=== PATIENT | female | born 1990 | race Caucasian/White ===

== ENCOUNTER 2017-12-11 14:33 | Observation (INO) | payer MEDICAID ==
[~2017-12-11] VITALS: Ht 149.9 cm; Wt 71.2 kg
[2017-12-11] MEDS ORDERED: LACTATED RINGERS 1,000 ML IV SCH (15:31)
[2017-12-11] MEDS ORDERED: TERBUTALINE SULFATE 1MG/ML VIAL SUBCUT NR (15:45)
[2017-12-11 16:03] LABS: BASOPHILS % 0.8 % (0.0-2.0); EOSINOPHILS % 1.5 % (0.0-5.0); HEMATOCRIT. 36.7 % (36.0-48.0); HEMOGLOBIN. 12.6 g/dL (12.0-16.0); LYMPHOCYTES % 14.3 % (20.0-50.0); MEAN CORPUSCULAR HEMOGLOBIN 29.9 pg (28.0-32.0); MEAN CORPUSCULAR VOLUME 86.8 fL (81.0-99.0); MEAN PLATELET VOLUME 8.6 fl (7.4-10.4); MONOCYTES % 6.3 % (2.0-8.0); NEUTROPHILS % 77.1 % (40.0-76.0); PLATELET 277 x1000/uL (130-400); RED BLOOD CELL COUNT 4.23 mill/uL (4.2-5.4); RED CELL DISTRIBUTION WIDTH 13.9 % (11.6-14.6)
[2017-12-11 16:03] LABS: CLARITY URINE CLEAR (CLEAR); COLOR URINE YELLOW (YELLOW); KETONES URINE NEGATIVE (NEGATIVE); LEUKOCYTE ESTERASE URINE NEGATIVE (NEGATIVE); NITRITE URINE NEGATIVE (NEGATIVE); OCCULT BLOOD URINE 1+ (NEGATIVE); PH URINE 6.5 (4.5-8.0); PROTEIN URINE 2+ (NEGATIVE); SPECIFIC GRAVITY URINE 1.015 (1.005-1.030); UROBILINOGEN URINE 0.2 E.U./dL (0.2-1.0)
[2017-12-11] MEDS ORDERED: BETAMETHASONE ACET/BETAMET 30 MG/5 ML VIAL IM NR (18:56)
[2017-12-11] MEDS ORDERED: CEFAZOLIN 2,000 MG in DEXT 5% WATER 100 ML IV NR (19:00)
[2017-12-11] MEDS ORDERED: PREN1TAB78 MT (21:13)
== END 2017-12-11 21:55 | disposition home or self-care (01) ==
LOC: L&D 14:33
PROVIDERS: ADMIT Obstetrics & Gynecology; ATTEND Obstetrics & Gynecology
DX: O26.852 Spotting complicating pregnancy, second trimester (principal); O26.892 Other specified pregnancy related conditions, second trimester; R10.30 Lower abdominal pain, unspecified; Z3A.27 27 weeks gestation of pregnancy
CPT/HCPCS: 36415; 76805; 76818; 81003; 85025; 96361; 96365; 96372; 99281; G0378; J0690; J0702; J3105; J7120; 96360; J7060

== ENCOUNTER 2017-12-12 19:16 | Observation (INO) | payer MEDICAID ==
[~2017-12-12] VITALS: Ht 149.9 cm; Wt 71.2 kg
[~2017-12-12 19:16] MED LIST: PREN1TAB78 MT
[2017-12-12] MEDS ORDERED: BETAMETHASONE ACET/BETAMET 30 MG/5 ML VIAL IM NR (20:00)
== END 2017-12-12 20:15 | disposition home or self-care (01) ==
LOC: L&D 19:16
PROVIDERS: ADMIT Obstetrics & Gynecology; ATTEND Obstetrics & Gynecology
DX: O62.9 Abnormality of forces of labor, unspecified (principal); Z3A.27 27 weeks gestation of pregnancy
CPT/HCPCS: 96372; G0378

== ENCOUNTER 2018-01-29 21:34 | Observation (INO) | payer MEDICAID ==
[~2018-01-29] VITALS: Ht 149.9 cm; Wt 72.6 kg
[2018-01-29 22:28] LABS: CLARITY URINE CLEAR (CLEAR); COLOR URINE YELLOW (YELLOW); KETONES URINE NEGATIVE (NEGATIVE); LEUKOCYTE ESTERASE URINE NEGATIVE (NEGATIVE); NITRITE URINE NEGATIVE (NEGATIVE); OCCULT BLOOD URINE 2+ (NEGATIVE); PH URINE 7.5 (4.5-8.0); PROTEIN URINE NEGATIVE (NEGATIVE); SPECIFIC GRAVITY URINE 1.004 (1.005-1.030); UROBILINOGEN URINE 0.2 E.U./dL (0.2-1.0)
[2018-01-29 22:38] LABS: *AMPHETAMINES SCREEN URINE NEGATIVE (NEGATIVE); *BARBITURATES SCREEN URINE NEGATIVE (NEGATIVE); *BENZODIAZEPINES SCREEN URINE NEGATIVE (NEGATIVE); *COCAINE SCREEN URINE NEGATIVE (NEGATIVE); METHADONE URINE SCREEN NEGATIVE (NEGATIVE); OPIATES URINE SCREEN NEGATIVE (NEGATIVE)
[2018-01-29 22:39] LABS: CANNABINOID URINE SCREEN NEGATIVE (NEGATIVE); PHENCYCLIDINE URINE SCREEN NEGATIVE (NEGATIVE)
[2018-01-29] MEDS: LACTATED RINGERS 1,000 ML IV SCH (23:20)
[2018-01-30] MEDS ORDERED: CEFAZOLIN 2,000 MG in DEXT 5% WATER 100 ML IV SCH (00:15)
[2018-01-30] MEDS: TERBUTALINE SULFATE 1MG/ML VIAL SUBCUT PRN ×2 (00:17→01:09)
[2018-01-30] MEDS: LACTATED RINGERS 1,000 ML IV SCH (00:40)
== END 2018-01-30 02:15 | disposition home or self-care (01) ==
LOC: L&D 21:34
PROVIDERS: ADMIT Obstetrics & Gynecology; ATTEND Obstetrics & Gynecology
DX: O26.853 Spotting complicating pregnancy, third trimester (principal); O62.9 Abnormality of forces of labor, unspecified; Z3A.35 35 weeks gestation of pregnancy
CPT/HCPCS: 80305; 81003; 96365; 96372; 99281; G0378; J0690; J3105; J7120; 96360; 96361; J7060

== ENCOUNTER 2018-02-02 00:24 | Observation (INO) | payer MEDICAID ==
[~2018-02-02] VITALS: Ht 124.5 cm; Wt 72.6 kg
[2018-02-02] MEDS ORDERED: LACTATED RINGERS 1,000 ML IV SCH ×2 (00:58→01:15)
[2018-02-02] MEDS ORDERED: TERBUTALINE SULFATE 1MG/ML VIAL SUBCUT PRN (01:00)
== END 2018-02-02 02:50 | disposition home or self-care (01) ==
LOC: L&D 00:24
PROVIDERS: ADMIT Obstetrics & Gynecology; ATTEND Obstetrics & Gynecology
DX: O46.93 Antepartum hemorrhage, unspecified, third trimester (principal); Z3A.34 34 weeks gestation of pregnancy
CPT/HCPCS: 96372; 99281; G0378; J3105; J7120; 96360

== ENCOUNTER 2018-07-31 16:31 | Inpatient (IN) | payer MEDICAID ==
[~2018-07-31] VITALS: Ht 152.4 cm; Wt 68.0 kg
[2018-07-31 17:06] LABS: CLARITY URINE CLEAR (CLEAR); COLOR URINE RED (YELLOW); KETONES URINE TRACE (NEGATIVE); LEUKOCYTE ESTERASE URINE NEGATIVE (NEGATIVE); NITRITE URINE NEGATIVE (NEGATIVE); OCCULT BLOOD URINE 3+ (NEGATIVE); PROTEIN URINE 2+ (NEGATIVE); SPECIFIC GRAVITY URINE 1.011 (1.005-1.030); UROBILINOGEN URINE 0.2 E.U./dL (0.2-1.0)
[2018-07-31] MEDS ORDERED: SODIUM CHLORIDE 0.9% 1,000 ML IV ONE (23:06)
[2018-07-31 23:49] LABS: BASOPHILS % 0.6 % (0.0-2.0); EOSINOPHILS % 1.6 % (0.0-5.0); HEMATOCRIT. 41.5 % (36.0-48.0); HEMOGLOBIN. 13.8 g/dL (12.0-16.0); LYMPHOCYTES % 22.3 % (20.0-50.0); MEAN CORPUSCULAR HEMOGLOBIN 29.4 pg (28.0-32.0); MEAN CORPUSCULAR VOLUME 88.1 fL (81.0-99.0); MEAN PLATELET VOLUME 8.5 fl (7.4-10.4); MONOCYTES % 6.2 % (2.0-8.0); NEUTROPHILS % 69.3 % (40.0-76.0); PLATELET 289 x1000/uL (130-400); RED BLOOD CELL COUNT 4.71 mill/uL (4.2-5.4); RED CELL DISTRIBUTION WIDTH 13.8 % (11.6-14.6)
[2018-07-31 23:56] LABS: CHLORIDE 102 mEq/L (98-107)
[2018-08-01 00:21] LABS: B-HCG QUANTITATIVE 1453 mIU/mL (<3)
[2018-08-01 10:53] VITALS: BP 120/68
[2018-08-01] MEDS ORDERED: DOXY150T MT (11:18)
[2018-08-01] MEDS ORDERED: [UNRECOGNIZED DRUG - REMARK] (11:18)
[2018-08-01] MEDS ORDERED: ORLI60CA2 MT (11:18)
[2018-08-01 12:00] VITALS: BP 119/61
[2018-08-01] MEDS ORDERED: IBUPROFEN 400MG TABLET PO PRN (16:30)
[2018-08-01] MEDS ORDERED: ONDANSETRON HCL 4MG/2ML INJ IV PRN (16:30)
[2018-08-01] MEDS ORDERED: IBUPROFEN 800MG TABLET PO PRN (16:30)
[2018-08-01] MEDS: LACTATED RINGERS 1,000 ML IV SCH (16:37)
[2018-08-01] MEDS ORDERED: SIMETHICONE 80MG TABLET CHEW PO PRN (18:15)
[2018-08-02] MEDS: LACTATED RINGERS 1,000 ML IV SCH ×3 (00:33→15:46)
[2018-08-02 07:00] LABS: HEMATOCRIT 33.5 % (36.0-48.0); HEMOGLOBIN 11.2 g/dL (12.0-16.0); MEAN CORPUSCULAR HEMOGLOBIN 29.3 pg (28.0-32.0); MEAN CORPUSCULAR VOLUME 87.6 fL (81.0-99.0); PLATELET 206 x1000/uL (130-400); RED BLOOD CELL COUNT 3.82 mill/uL (4.2-5.4); RED CELL DISTRIBUTION WIDTH 13.8 % (11.6-14.6)
[2018-08-02 08:00] VITALS: BP 95/38
[2018-08-02 12:00] VITALS: BP 106/45
[2018-08-02 16:00] VITALS: BP 105/45
[2018-08-02 18:17] VITALS: BP 125/81
== END 2018-08-02 18:38 | disposition home or self-care (01) | DRG 564 ==
LOC: ER 16:31 → 6EST 08-01 00:16 → ENRESERV 08-01 09:46
PROVIDERS: ADMIT Obstetrics & Gynecology; ATTEND Obstetrics & Gynecology
DX: O03.9 Complete or unspecified spontaneous abortion without complication (principal); D62 Acute posthemorrhagic anemia; E87.6 Hypokalemia; J45.909 Unspecified asthma, uncomplicated; M10.9 Gout, unspecified
CPT/HCPCS: 36415; 76801; 84702; 85027; 86850; 86900; 96360; 96361; 99291; J7030; J7120

== ENCOUNTER 2019-12-24 01:25 | Observation (INO) | payer MEDICAID ==
[~2019-12-24] VITALS: Ht 149.9 cm; Wt 68.9 kg
[~2019-12-24 01:25] MED LIST changes: +DOXY150T5 MT; +ORLI60CA2 MT; +[UNRECOGNIZED DRUG - REMARK]
[2019-12-24] MEDS ORDERED: TERBUTALINE SULFATE 1MG/ML VIAL SUBCUT ONE (03:15)
[2019-12-24 03:42] LABS: BASOPHILS % 0.4 % (0.0-2.0); EOSINOPHILS % 0.9 % (0.0-5.0); HEMATOCRIT. 38.3 % (36.0-48.0); HEMOGLOBIN. 13.1 g/dL (12.0-16.0); LYMPHOCYTES % 14.3 % (20.0-50.0); MEAN CORPUSCULAR HEMOGLOBIN 30.4 pg (28.0-32.0); MEAN CORPUSCULAR VOLUME 88.8 fL (81.0-99.0); MEAN PLATELET VOLUME 8.9 fl (7.4-10.4); MONOCYTES % 6.6 % (2.0-8.0); NEUTROPHILS % 77.8 % (40.0-76.0); PLATELET 269 x1000/uL (130-400); RED BLOOD CELL COUNT 4.31 mill/uL (4.2-5.4); RED CELL DISTRIBUTION WIDTH 13.9 % (11.6-14.6)
[2019-12-24] MEDS: DEXT 5%/LACTATED RINGERS 1,000 ML IV SCH ×2 (03:52→08:55)
[2019-12-24 04:27] LABS: CHLORIDE 105 mEq/L (98-107)
[2019-12-24 04:54] LABS: CLARITY URINE CLEAR (CLEAR); COLOR URINE YELLOW (YELLOW); KETONES URINE NEGATIVE (NEGATIVE); LEUKOCYTE ESTERASE URINE NEGATIVE (NEGATIVE); NITRITE URINE NEGATIVE (NEGATIVE); OCCULT BLOOD URINE 1+ (NEGATIVE); PH URINE 7.5 (4.5-8.0); PROTEIN URINE 2+ (NEGATIVE); SPECIFIC GRAVITY URINE 1.012 (1.005-1.030)
[2019-12-24] MEDS ORDERED: CEFAZOLIN 2,000 MG in DEXT 5% WATER 100 ML IV ONE (07:00)
[2019-12-24] MEDS: POTASSIUM CHLORIDE 20MEQ TABLET SR PO SCH ×2 (07:39→13:01)
[2019-12-24 14:19] LABS: BASOPHILS % 0.3 % (0.0-2.0); EOSINOPHILS % 0.7 % (0.0-5.0); HEMATOCRIT. 38.5 % (36.0-48.0); HEMOGLOBIN. 13.1 g/dL (12.0-16.0); LYMPHOCYTES % 15.5 % (20.0-50.0); MEAN CORPUSCULAR HEMOGLOBIN 30.2 pg (28.0-32.0); MEAN CORPUSCULAR VOLUME 88.8 fL (81.0-99.0); MEAN PLATELET VOLUME 8.7 fl (7.4-10.4); NEUTROPHILS % 78.5 % (40.0-76.0); PLATELET 264 x1000/uL (130-400); RED BLOOD CELL COUNT 4.33 mill/uL (4.2-5.4); RED CELL DISTRIBUTION WIDTH 14.3 % (11.6-14.6)
== END 2019-12-24 15:15 | disposition home or self-care (01) ==
LOC: 8 EST LDRP 01:25
PROVIDERS: ADMIT Obstetrics & Gynecology; ATTEND Obstetrics & Gynecology
DX: O99.352 Diseases of the nervous system complicating pregnancy, second trimester (principal); R42 Dizziness and giddiness; Z3A.22 22 weeks gestation of pregnancy
CPT/HCPCS: 36415; 59025; 76805; 80053; 81003; 82731; 84132; 85025; 96361; 96365; 96372; G0378; J0690; J3105; J7060; 59412; 96360; 99281; J7121

== ENCOUNTER 2020-02-19 16:48 | Observation (INO) | payer MEDICAID ==
[~2020-02-19] VITALS: Ht 152.4 cm; Wt 72.1 kg
[~2020-02-19 16:48] MED LIST changes: -DOXY150T5 MT; -ORLI60CA2 MT; -[UNRECOGNIZED DRUG - REMARK]
[2020-02-19 17:57] LABS: *AMPHETAMINES SCREEN URINE NEGATIVE (NEGATIVE); *BARBITURATES SCREEN URINE NEGATIVE (NEGATIVE)
[2020-02-19 17:58] LABS: *BENZODIAZEPINES SCREEN URINE NEGATIVE (NEGATIVE); *COCAINE SCREEN URINE NEGATIVE (NEGATIVE); CANNABINOID URINE SCREEN NEGATIVE (NEGATIVE); METHADONE URINE SCREEN NEGATIVE (NEGATIVE); OPIATES URINE SCREEN NEGATIVE (NEGATIVE); PHENCYCLIDINE URINE SCREEN NEGATIVE (NEGATIVE)
== END 2020-02-19 19:13 | disposition home or self-care (01) ==
LOC: 8 EST LDRP 16:48
PROVIDERS: ADMIT Obstetrics & Gynecology; ATTEND Obstetrics & Gynecology
DX: O36.8330 Maternal care for abnormalities of the fetal heart rate or rhythm, third trimester, not applicable or unspecified (principal); Z3A.33 33 weeks gestation of pregnancy; Z79.899 Other long term (current) drug therapy
CPT/HCPCS: 59025; 76815; 76818; 80305; G0378; 99281

== ENCOUNTER 2020-02-22 10:11 | Observation (INO) | payer MEDICAID ==
[~2020-02-22] VITALS: Ht 149.9 cm; Wt 72.1 kg
== END 2020-02-22 12:00 | disposition home or self-care (01) ==
LOC: 8 EST LDRP 10:11
PROVIDERS: ADMIT Obstetrics & Gynecology; ATTEND Obstetrics & Gynecology
DX: O36.8330 Maternal care for abnormalities of the fetal heart rate or rhythm, third trimester, not applicable or unspecified (principal); Z3A.33 33 weeks gestation of pregnancy
CPT/HCPCS: 59025; 76815; 76818; G0378

== ENCOUNTER 2020-03-26 11:44 | Observation (INO) | payer MEDICAID ==
[~2020-03-26] VITALS: Ht 149.9 cm; Wt 74.4 kg
[2020-03-26 13:17] LABS: CHLORIDE 105 mEq/L (98-107)
[2020-03-26 13:18] LABS: BASOPHILS % 0.7 % (0.0-2.0); EOSINOPHILS % 0.5 % (0.0-5.0); HEMATOCRIT. 41.4 % (36.0-48.0); HEMOGLOBIN. 13.9 g/dL (12.0-16.0); LYMPHOCYTES % 13.9 % (20.0-50.0); MEAN CORPUSCULAR VOLUME 86.7 fL (81.0-99.0); MEAN PLATELET VOLUME 10.4 fl (7.4-10.4); MONOCYTES % 4.4 % (2.0-8.0); NEUTROPHILS % 80.5 % (40.0-76.0); PLATELET 197 x1000/uL (130-400); RED BLOOD CELL COUNT 4.78 mill/uL (4.2-5.4); RED CELL DISTRIBUTION WIDTH 15.3 % (11.6-14.6)
[2020-03-26 13:24] LABS: D-DIMER 1.68 mg/L FEU (<0.50); INR 0.9; PARTIAL THROMBOPLASTIN TIME 27.1 sec (23.4-31.0); PROTHROMBIN TIME 9.6 sec (9.6-11.0)
[2020-03-26 13:25] LABS: CLARITY URINE CLEAR (CLEAR); COLOR URINE YELLOW (YELLOW); KETONES URINE NEGATIVE (NEGATIVE); LEUKOCYTE ESTERASE URINE NEGATIVE (NEGATIVE); NITRITE URINE NEGATIVE (NEGATIVE); OCCULT BLOOD URINE 1+ (NEGATIVE); PROTEIN URINE 2+ (NEGATIVE); SPECIFIC GRAVITY URINE 1.006 (1.005-1.030); UROBILINOGEN URINE 0.2 E.U./dL (0.2-1.0)
== END 2020-03-26 14:50 | disposition home or self-care (01) ==
LOC: 8 EST LDRP 11:44
PROVIDERS: ADMIT Obstetrics & Gynecology; ATTEND Obstetrics & Gynecology
DX: O13.3 Gestational [pregnancy-induced] hypertension without significant proteinuria, third trimester (principal); Z3A.38 38 weeks gestation of pregnancy
CPT/HCPCS: 36415; 59025; 80053; 81003; 84550; 85025; 85379; 85384; 85610; 85730; G0378; 99281

== ENCOUNTER → 2020-03-28 | Outpatient (CLI) | payer MEDICAID | END | disposition home or self-care (01) | LOC: LAB 12:59 | PROVIDERS: ATTEND Obstetrics & Gynecology | DX: Z20.828 Contact with and (suspected) exposure to other viral communicable diseases (principal) | CPT/HCPCS: C9803; U0003 ==

== ENCOUNTER → 2024-07-03 | Day surgery (SDC) | payer OTHER ==
[~2024-07-03] VITALS: Ht 149.9 cm; Wt 68.9 kg
[~2024-07-03] MED LIST changes: +BUPIVACAINE HCL/PF 0.5% (5MG/ML) 10ML ONE; +GLYCOPYRROLATE 0.2 MG/ML 2ML VIAL IV PRN; +HYDRALAZINE 20MG/ML VIAL IV PRN; +HYDROMORPHONE HCL/PF 1MG/ML INJ IV PRN; +INDOCYANINE GREEN 25 MG VIAL IV ONE; +LABETALOL 5MG/ML 4ML INJ IV PRN; +LACTATED RINGERS 1,000 ML IV SCH; +LIDOCAINE HCL 1% 10 MG/ML 10ML VIAL ONE; +OLME20TA13 PO; +ONDANSETRON HCL 4MG/2ML INJ IV PRN; +POLYMYXIN B SULFATE 500000 UNITS/VIAL ONE; -PREN1TAB78 MT; +SKIN ADHESIVE 0.7 GM EA TOP ONE
[2024-07-03 06:27] LABS: UCG SCREEN NEGATIVE
== END | disposition home or self-care (01) ==
LOC: OR 05:51
PROVIDERS: ATTEND Specialist
DX: K80.20 Calculus of gallbladder without cholecystitis without obstruction (principal); Z53.8 Procedure and treatment not carried out for other reasons; J45.909 Unspecified asthma, uncomplicated; Z79.899 Other long term (current) drug therapy; Z98.890 Other specified postprocedural states; Z88.0 Allergy status to penicillin; Z88.1 Allergy status to other antibiotic agents; Z82.49 Family history of ischemic heart disease and other diseases of the circulatory system; Z83.3 Family history of diabetes mellitus
CPT/HCPCS: 81025; 87086; J0665; J2003; J3490; Q9957

== ENCOUNTER → 2024-07-14 | Day surgery (SDC) | payer OTHER ==
[~2024-07-14] VITALS: Ht 149.9 cm; Wt 68.9 kg
[~2024-07-14] MED LIST changes: +CLINDAMYCIN 900MG PREMIX 50 ML IV ONE; +FENTANYL CITRATE/PF 50MCG/ML 2ML VIAL ONE; +FENTANYL CITRATE/PF 50MCG/ML 5ML VIAL ONE; +GLYCOPYRROLATE 0.2 MG/ML 2ML VIAL ONE; +HYDROCODONE/ACETAMINOPHEN 5/325MG TABLET PO PRN; +HYDROMORPHONE HCL/PF 1MG/ML INJ ONE; -LABETALOL 5MG/ML 4ML INJ IV PRN; -LACTATED RINGERS 1,000 ML IV SCH; -LIDOCAINE HCL 1% 10 MG/ML 10ML VIAL ONE; +LIDOCAINE HCL 1% 20ML VIAL ONE; +LIDOCAINE HCL/EPINEPHRINE 1%-EPI 1:100,000 20ML VIAL ONE; +MIDAZOLAM HCL 2 MG/2 ML VIAL ONE; +NEOSTIGMINE METHYLSULFATE 1MG/ML 10 ML VIAL ONE; -ONDANSETRON HCL 4MG/2ML INJ IV PRN; +ROCURONIUM BROMIDE 10MG/ML VIAL 5ML IV ONE
[2024-07-14 08:53] LABS: UCG KIT LOT# 888041; UCG SCREEN NEGATIVE
[2024-07-14 08:55] LABS: CLARITY URINE CLEAR (CLEAR); COLOR URINE YELLOW (YELLOW); GLUCOSE URINE NEGATIVE (NEGATIVE); KETONES URINE NEGATIVE (NEGATIVE); LEUKOCYTE ESTERASE URINE NEGATIVE (NEGATIVE); NITRITE URINE NEGATIVE (NEGATIVE); OCCULT BLOOD URINE TRACE (NEGATIVE); PH URINE 6.5 (4.5-8.0); PROTEIN URINE 1+ (NEGATIVE); SPECIFIC GRAVITY URINE 1.011 (1.005-1.030); UROBILINOGEN URINE 0.2 E.U./dL (0.2-1.0)
[2024-07-14 09:10] LABS: BACTERIA URINE 1+; SQUAMOUS EPITHELIAL CELL URINE 1+ /lpf (RARE/1+); YEAST URINE NONE SEEN
[2024-07-14] MEDS: LACTATED RINGERS 1,000 ML IV SCH (09:17)
[2024-07-14] MEDS: HYDROMORPHONE HCL/PF 1MG/ML INJ IV PRN ×2 (12:57→13:03)
[2024-07-14] MEDS: KETOROLAC 30MG/ML VIAL IV NR (13:28)
[2024-07-14 13:33] VITALS: BP 118/71; PULSE 83; RESP 17
[2024-07-14] MEDS: ONDANSETRON HCL 4MG/2ML INJ IV PRN (14:49)
== END | disposition home or self-care (01) ==
LOC: OR 08:14
PROVIDERS: ATTEND Specialist
DX: K80.10 Calculus of gallbladder with chronic cholecystitis without obstruction (principal); J45.909 Unspecified asthma, uncomplicated; I10 Essential (primary) hypertension; Z88.0 Allergy status to penicillin; Z88.1 Allergy status to other antibiotic agents; Z79.899 Other long term (current) drug therapy; Z98.890 Other specified postprocedural states; Z82.49 Family history of ischemic heart disease and other diseases of the circulatory system; Z83.3 Family history of diabetes mellitus
CPT/HCPCS: 47562; 81003; 81025; 82962; 88304; J1885; J3010 ×2; J0665; J3490 ×5; J2004; J2250; J2405; J1171; J7120; Q9957; J2710